=== PATIENT | male | born 1995 | race Caucasian/White ===

== ENCOUNTER 2024-08-14 14:35 | Outpatient (CLI) | payer OTHER, SELFPAY | END 2024-08-14 14:36 | disposition home or self-care (01) | LOC: NFLDREF 08-17 22:31 | PROVIDERS: Visit Provider Nurse Practitioner | DX: J02.9 Acute pharyngitis, unspecified (principal); R21 Rash and other nonspecific skin eruption; K12.0 Recurrent oral aphthae; L03.311 Cellulitis of abdominal wall; B34.9 Viral infection, unspecified | CPT/HCPCS: 87086 ==